=== PATIENT | male | born 1970 | race Caucasian/White ===

== ENCOUNTER 2021-12-16 04:43 | Inpatient (IN) ==
[2021-12-16 05:32] LABS: Bilirubin,Urine Negative (Negative); Blood,Urine Trace (Negative); Clarity,Urine Clear (Clear); Color,Urine Light-Yellow (Yellow); Glucose,Urine (UA) Normal (Normal); Ketones,Urine 40 mg/dL (Negative); Leukocyte Esterase,Urine Negative (Negative); Mucus,Urine Few per lpf (None-Few); Nitrite,Urine Negative (Negative); PH,Urine 6.5 pH Units (5.0-8.0); Protein,Urine Negative (Neg-Trace); RBC,Urine 0-3 per hpf (0-3); Specific Gravity,Urine 1.009 (1.010-1.025); Urobilinogen,Urine Normal (Normal)
[2021-12-16 05:40] LABS: Acetaminophen < 10 mcg/mL (10-20); BUN/Creatinine Ratio 16 (6-26); Blood Urea Nitrogen 17 mg/dL (6-20); Carbon Dioxide 21 mEq/L (23-29); Chloride 104 mEq/L (98-107); Ethanol < 10 mg/dL (Less than 10); Glucose 89 mg/dL (70-105); Osmolality,Calculated 281 (280-300); Potassium 4.1 mEq/L (3.5-5.1); Salicylate < 2.5 mg/dL (15.0-30.0); Sodium 135 mEq/L (136-145)
[2021-12-16 05:43] LABS: Amphetamine Screen,Urine Negative ng/mL (Cutoff=1000); Barbiturate Screen,Urine Negative ng/mL (Cutoff=200); Benzodiazepines Screen,Urine Negative ng/mL (Cutoff=200); Cannabinoid Screen,Urine Positive ng/mL (Cutoff = 50); Cocaine Screen,Urine Negative ng/mL (Cutoff= 300); Opiate Screen,Urine Negative ng/mL (Cutoff=300); Phencyclidine Screen,Urine Negative ng/mL (Cutoff=25)
[2021-12-16 05:44] LABS: Basophils # 0.2 K/mcL (0.0-0.2); Eosinophils # 0.3 K/mcL (0.0-0.6); Eosinophils % 2.2 %; Hematocrit 47.6 % (37.5-50.1); Hemoglobin 16.5 g/dL (12.9-16.9); Immature Granulocytes % 0.4 % (0-4); Lymphocytes # 2.2 K/mcL (0.6-4.6); Lymphocytes % 15.2 %; Mean Corpuscular HGB Conc 34.7 g/dL (31.6-35.5); Mean Corpuscular Volume 86.5 fL (83.0-100.0); Mean Platelet Volume 9.5 fL (9.4-12.4); Monocytes # 0.5 K/mcL (0.0-1.3); Monocytes % 3.7 %; Neutrophils # 11.3 K/mcL (1.6-8.9); Platelet Count 282 K/mcL (140-400); Red Cell Distribution Width 13.9 % (11.5-14.5); Segmented Neutrophils % 77.5 %; White Blood Count 14.5 K/mcL (4.3-11.1)
[2021-12-16 06:02] LABS: Influenza A PCR Negative (Negative); Influenza B PCR Negative (Negative); Resp. Syncytial Virus PCR Negative (Negative)
[2021-12-16 06:03] LABS: SARS-CoV-2 by PCR (In House) Negative (Negative)
[2021-12-16] MEDS ORDERED: Haloperidol Lactate 5 MG/ML VIAL IM PRN (07:23)
[2021-12-16] MEDS ORDERED: *HR* LORazepam 2 MG/ML VIAL IM PRN (07:23)
[2021-12-16] MEDS ORDERED: Acetaminophen 325 MG TABLET PO PRN (07:23)
[2021-12-16] MEDS ORDERED: Mag Hydrox/Al Hydrox/Simeth 30 ML UDC PO PRN (08:01)
[2021-12-16] MEDS ORDERED: MOM Conc 10 ML UD.LIQ PO PRN (08:01)
[2021-12-16] MEDS: hydrOXYzine pamoate 25 MG CAPSULE PO PRN ×2 (09:04→14:50)
[2021-12-17] MEDS: hydrOXYzine pamoate 25 MG CAPSULE PO PRN (07:12)
[2021-12-17] MEDS: Metoprolol XL (24 HR) Succ 25 MG TAB.ER.24H PO SCH (08:30)
[2021-12-17] MEDS: Aspirin Enteric Coated 81 MG Tablet PO SCH (08:30)
[2021-12-17] MEDS: Nicotine 21 MG PATCH.TD24 TD SCH (08:31)
[2021-12-17] MEDS: haloperidoL 5 MG TABLET PO PRN (09:37)
[2021-12-17] MEDS: *HR* LORazepam 1 MG TABLET PO PRN (09:37)
[2021-12-18] MEDS: Metoprolol XL (24 HR) Succ 25 MG TAB.ER.24H PO SCH (08:03)
[2021-12-18] MEDS: Aspirin Enteric Coated 81 MG Tablet PO SCH (08:03)
[2021-12-18] MEDS: Nicotine 21 MG PATCH.TD24 TD SCH (08:04)
[2021-12-18] MEDS: *HR* LORazepam 1 MG TABLET PO PRN (11:55)
[2021-12-18] MEDS: haloperidoL 5 MG TABLET PO PRN (11:56)
[2021-12-19] MEDS: QUEtiapine Fumarate 25 MG TABLET PO PRN (02:45)
[2021-12-19] MEDS: Metoprolol XL (24 HR) Succ 25 MG TAB.ER.24H PO SCH (08:15)
[2021-12-19] MEDS: Aspirin Enteric Coated 81 MG Tablet PO SCH (08:15)
[2021-12-19] MEDS: Nicotine 21 MG PATCH.TD24 TD SCH (08:16)
[2021-12-19] MEDS: haloperidoL 5 MG TABLET PO PRN (08:51)
[2021-12-19] MEDS: *HR* LORazepam 1 MG TABLET PO PRN (08:51)
[2021-12-19] MEDS ORDERED: Paliperidone Palmitate 234 MG/1.5 ML SYRINGE IM SCH (11:15)
[2021-12-20] MEDS: Metoprolol XL (24 HR) Succ 25 MG TAB.ER.24H PO SCH (08:43)
[2021-12-20] MEDS: Aspirin Enteric Coated 81 MG Tablet PO SCH (08:43)
[2021-12-20] MEDS: Nicotine 21 MG PATCH.TD24 TD SCH (08:43)
[2021-12-20] MEDS: hydrOXYzine pamoate 25 MG CAPSULE PO PRN ×2 (12:23→22:35)
[2021-12-20] MEDS: Nicotine 2 MG GUM BC PRN ×2 (12:23→19:22)
[2021-12-20 20:35] VITALS: O2SAT 97
[2021-12-20] MEDS: QUEtiapine Fumarate 25 MG TABLET PO PRN (22:35)
[2021-12-21] MEDS: Metoprolol XL (24 HR) Succ 25 MG TAB.ER.24H PO SCH (07:52)
[2021-12-21] MEDS: Aspirin Enteric Coated 81 MG Tablet PO SCH (07:52)
[2021-12-21] MEDS: Nicotine 2 MG GUM BC PRN (07:54)
[2021-12-21 09:29] VITALS: BP 126/82; PULSE 75; TEMP 97.4
== END 2021-12-21 08:45 | disposition home or self-care (01) | DRG 885 ==
LOC: EMEROOARM 04:43 → 1ANU 06:56
PROVIDERS: ADMIT Psychiatry & Neurology Psychiatry; ATTEND Psychiatry & Neurology Psychiatry